=== PATIENT | female | born 1990 | race Two or more races ===

== ENCOUNTER 2020-09-02 09:30 | Outpatient (REF) | payer BC, SELFPAY ==
[2020-09-02 11:32] LABS: MANUAL DIFF FLAG NO
[2020-09-02 11:38] LABS: Basophils Percent Auto 0.3 % (0-2); Eosinophils Absolute Auto 0.1 X10*3/uL (0.0-0.4); Eosinophils Percent Auto 0.4 % (0-4); Hematocrit 38.4 % (37-47); Imm Gran Abs Auto 0.06 X10*3/uL (0.00-0.03); Imm Gran Pct Auto 0.5 % (0.0-0.4); Lymphocytes Absolute Auto 2.4 X10*3/uL (1.2-4.9); Lymphocytes Percent Auto 20.2 % (20-40); Mean Corpuscular HGB Conc 31.3 g/dl (31.0-35.0); Mean Corpuscular Hemoglobin 27.9 pg (27.0-33.0); Mean Corpuscular Volume 89.3 fL (80-98); Mean Platelet Volume 9.3 fL (9.4-12.3); Monocytes Absolute Auto 0.8 X10*3/uL (0.1-1.2); Monocytes Percent Auto 6.4 % (2-11); Neutrophils Absolute Auto 8.5 X10*3/uL (2.0-8.3); Neutrophils Percent Auto 72.2 % (45-73); Platelet Count 339 X10*3/uL (160-400); Red Cell Distribution Width 11.9 % (11.0-16.0); White Blood Count 11.8 X10*3/uL (4.8-10.8)
[2020-09-02 12:27] LABS: Thyroid Stimulating Hormone 1.77 uIU/mL (0.32-4.0)
[2020-09-02 12:39] LABS: Alanine Aminotransferase 12 U/L (0-31); Albumin Level 4.1 g/dL (3.5-5.0); Alkaline Phosphatase 101 U/L (39-117); Anion Gap 11 (12-20); Aspartate Amino Transferase 14 U/L (5-31); Bilirubin Total 0.9 mg/dL (0.0-1.0); Blood Urea Nitrogen 12 mg/dL (9-16); Calcium 9.4 mg/dL (8.4-10.2); Carbon Dioxide 29 mmol/L (22-29); Cholesterol 178 mg/dL; Estimated Glomerular Filt Rate > 60; Glucose Fasting 100 mg/dL (60-99); HDL Cholesterol 51 mg/dL; LDL Cholesterol Calculated 115 mg/dl; Potassium 3.7 mmol/L (3.3-5.1); Sodium 138 mmol/L (135-145); Total Protein 7.5 g/dL (6.5-8.0); Triglycerides 64 mg/dL
[2020-09-02 12:46] LABS: Chloride 102 mmol/L (96-108)
[2020-09-03 09:27] LABS: CT PCR NOT DETECTED (Not Detect.); NG PCR NOT DETECTED (Not Detect.)
[2020-09-03 18:51] LABS: Prolactin 21.3 ng/mL
[2020-09-03 22:52] LABS: DHEA Sulfate 544 mcg/dL (18-391)
[2020-09-07 11:12] LABS: Testosterone, Free 6.7 pg/mL (0.1-6.4); Testosterone, Total 26 ng/dL (2-45)
== END 2020-09-02 09:31 | disposition home or self-care (01) ==
LOC: HO.LAB 09:30
PROVIDERS: Absent Provider Internal Medicine; PCP Internal Medicine; Visit Provider Advanced Practice Midwife
DX: Z11.3 Encounter for screening for infections with a predominantly sexual mode of transmission (principal); N92.6 Irregular menstruation, unspecified; L68.0 Hirsutism; L70.9 Acne, unspecified; R23.4 Changes in skin texture; Z20.2 Contact with and (suspected) exposure to infections with a predominantly sexual mode of transmission
CPT/HCPCS: 36415; 80053; 80061; 81003; 81025; 82627; 83498; 84146; 84402; 84403; 84443; 85025; 87491; 87591

== ENCOUNTER 2020-09-21 11:03 | Outpatient (REF) | payer BC, SELFPAY ==
--- NOTE | ~2020-09-21 | US_ITS ---
EXAMINATION: PELVIC ULTRASOUND CLINICAL INFORMATION: HIRSUTISM COMPARISON: None TECHNIQUE: Transabdominal and transvaginal pelvic ultrasound was performed. Transvaginal exam was performed for better visualization of the uterus and ovaries. FINDINGS: The uterus is anteverted and measures 8.8 x 3.4 x 4.3 cm in dimension. No focal uterine lesion is seen. Endometrial thickness is normal measuring 0.9 cm. There are nabothian cysts in the cervix. The right ovary measures 3.7 x 2 x 2.1 cm. There is a small nonspecific hyperechoic area in the right ovary measuring 8 x 6 x 4 mm. The left ovary is normal-appearing and measures 3.5 x 1.9 x 2.9 cm. There is trace fluid in the pelvis. US/US pelvic and transvaginal IMPRESSION: Nonspecific small 8 x 6 x 4 mm hyperechoic area in the right ovary. Otherwise unremarkable exam.
== END 2020-09-21 11:04 | disposition home or self-care (01) ==
LOC: HO.US 11:03
PROVIDERS: Visit Provider Advanced Practice Midwife
DX: L68.0 Hirsutism (principal); L70.9 Acne, unspecified; N92.6 Irregular menstruation, unspecified
CPT/HCPCS: 76830; 76856

== ENCOUNTER → 2020-10-06 10:31 | Outpatient (BNVA) | payer BC, SELFPAY | PROVIDERS: PCP Internal Medicine; Visit Provider Advanced Practice Midwife ==

== ENCOUNTER 2020-11-08 08:58 | Outpatient (REF) | payer BC, SELFPAY | END 2020-11-08 08:59 | disposition home or self-care (01) | LOC: HO.LAB 08:58 | PROVIDERS: PCP Internal Medicine; Visit Provider Advanced Practice Midwife | DX: Z01.411 Encounter for gynecological examination (general) (routine) with abnormal findings (principal); L73.1 Pseudofolliculitis barbae; N92.6 Irregular menstruation, unspecified | CPT/HCPCS: 88142 ==

== ENCOUNTER → 2020-12-29 13:13 | Outpatient (BNVA) | payer BC, SELFPAY | PROVIDERS: PCP Internal Medicine; Visit Provider Internal Medicine ==

== ENCOUNTER 2020-12-30 08:25 | Outpatient (REF) | payer BC, SELFPAY ==
[2020-12-30 09:31] LABS: Alanine Aminotransferase 11 U/L (0-31); Albumin Level 4.4 g/dL (3.5-5.0); Alkaline Phosphatase 107 U/L (39-117); Anion Gap 15 (12-20); Aspartate Amino Transferase 22 U/L (5-31); Bilirubin Total 0.8 mg/dL (0.0-1.0); Blood Urea Nitrogen 10 mg/dL (9-16); Calcium 9.6 mg/dL (8.4-10.2); Carbon Dioxide 25 mmol/L (22-29); Chloride 104 mmol/L (96-108); Estimated Glomerular Filt Rate > 60; Glucose Random 98 mg/dL (60-115); Potassium 3.8 mmol/L (3.3-5.1); Sodium 140 mmol/L (135-145); Total Protein 7.7 g/dL (6.5-8.0)
[2020-12-30 09:52] LABS: Free T4 (Free Thyroxine) 1.02 ng/dL (0.71-1.85); HCG Quantitative < 2 mIU/mL; Thyroid Stimulating Hormone 1.82 uIU/mL (0.32-4.0); Vitamin D 25-OH Total 24.6 ng/mL (>30)
[2020-12-30 09:59] LABS: Glucose Fasting 98 mg/dL (60-99)
[2020-12-30 10:26] LABS: Estimated Average Glucose 97 mg/dL
[2020-12-30 10:55] LABS: Glucose 1 Hour 248 mg/dL
[2020-12-30 12:04] LABS: Glucose 2 Hour 136 mg/dL
[2021-01-01 01:56] LABS: DHEA Sulfate 624 mcg/dL (18-391); Sex Hormone Binding Globulin 13 nmol/L (17-124)
[2021-01-03 15:06] LABS: IGF-1 (Somatomedin C) 239 ng/mL (63-373); IGF-1 Z Score (Female) 0.9 SD (-2.0 - +2.0)
[2021-01-03 22:52] LABS: Adrenocorticotropic Hormone 36 pg/mL (6-50)
[2021-01-04 11:41] LABS: Testosterone, Free 7.9 pg/mL (0.1-6.4); Testosterone, Total 38 ng/dL (2-45)
[2021-01-05 00:51] LABS: Follicle Stimulating Hormone 6.5 mIU/mL; Lutenizing Hormone 13.3 mIU/mL; Prolactin 13.7 ng/mL
[2021-01-05 23:02] LABS: Androstenedione 196 ng/dL
[2021-01-06 21:22] LABS: Estradiol Free 1.18 pg/mL; Estradiol, Ultrasensitive 46 pg/mL
== END 2020-12-30 08:26 | disposition home or self-care (01) ==
LOC: HO.LAB 08:25
PROVIDERS: PCP Internal Medicine; Visit Provider Internal Medicine
DX: N92.6 Irregular menstruation, unspecified (principal); E55.9 Vitamin D deficiency, unspecified; E28.8 Other ovarian dysfunction
CPT/HCPCS: 36415; 80053; 82024; 82157; 82306; 82533; 82627; 82670; 82681; 83001; 83002; 83036; 83498; 84146; 84270; 84305; 84402; 84403; 84439; 84443; 84702

== ENCOUNTER 2021-02-08 07:58 | Outpatient (REF) | payer BC, SELFPAY ==
--- NOTE | ~2021-02-08 | CT_ITS ---
EXAMINATION: CT ABDOMEN WITHOUT AND WITH CONTRAST CLINICAL INFORMATION: Ovarian dysfunction. COMPARISON: Pelvic ultrasound of 09/21/2020 TECHNIQUE: Contiguous axial thin section helical images of the abdomen were performed before and after the administration of 85 mL of Omnipaque 350 intravenous contrast. The data set was reformatted in the coronal and sagittal planes and reviewed on an independent workstation. This CT examination was performed using dose optimization techniques as appropriate, variously including the following: *Automated exposure control *Adjustment of mA and/or kV according to patient size (this includes techniques or standardized protocols for targeted exams where dose is matched to indication/reason for exam; i.e. extremities or head) *Use of iterative reconstruction technique DLP: 438 mGy-cm FINDINGS: LUNG BASES: Unremarkable. No pleural or pericardial effusion. LIVER, GALLBLADDER, AND BILIARY TREE: The liver appears unremarkable without focal mass or intrahepatic bile ductal dictation. The gallbladder appears unremarkable without evidence of cholelithiasis or acute cholecystitis. No pericholecystic fluid is appreciated. PANCREAS: Unremarkable. No mass or peripancreatic inflammatory change. SPLEEN: Unremarkable. ADRENAL GLANDS AND KIDNEYS: Adrenal Glands: No adrenal gland mass is appreciated. Kidneys and Ureters: There is a 2 mm nonobstructing midpole calculus within the right kidney. No hydronephrosis or focal mass is appreciated. Right ureter visualized portions appear unremarkable. No left renal calculus identified. No hydronephrosis or focal left renal mass is seen. Visualized portions of the left ureter are unremarkable. BOWEL LOOPS: No free air or free fluid is appreciated. There is a gas-distended loop of colon within the mid left abdomen without wall thickening or adjacent inflammatory change. No pericolonic inflammatory change. LYMPH NODES: No lymphadenopathy appreciated. VASCULAR: Unremarkable. BONES: No destructive bony lesions identified. CT/CT abdomen wo/w con IMPRESSION: No adrenal gland lesion appreciated. 2 mm nonobstructing right renal calculus.
[2021-02-08] MEDS: iohexoL 350 MG/ML 100 ML INFUS..BTL IV (09:32)
== END 2021-02-08 07:59 | disposition home or self-care (01) ==
LOC: HO.CT 07:58
PROVIDERS: PCP Internal Medicine; Visit Provider Internal Medicine
DX: E28.8 Other ovarian dysfunction (principal)
CPT/HCPCS: 74170; Q9967

== ENCOUNTER → 2021-03-23 11:37 | Outpatient (BNVA) | payer BC, SELFPAY | PROVIDERS: PCP Internal Medicine; Visit Provider Internal Medicine ==

== ENCOUNTER 2021-03-24 07:02 | Outpatient (REF) | payer BC, SELFPAY ==
[2021-03-24 09:14] LABS: Thyroid Stimulating Hormone 0.58 uIU/mL (0.32-4.0)
[2021-03-24 09:36] LABS: Cortisol Random < 1.0 ug/dL
[2021-03-25 19:36] LABS: Adrenocorticotropic Hormone 7 pg/mL (6-50)
[2021-03-30 14:47] LABS: Dexamethasone 257 ng/dL
== END 2021-03-24 07:03 | disposition home or self-care (01) ==
LOC: HO.LAB 07:02
PROVIDERS: PCP Internal Medicine; Visit Provider Internal Medicine
DX: E28.8 Other ovarian dysfunction (principal); E66.3 Overweight
CPT/HCPCS: 36415; 80299; 82024; 82533; 84443

== ENCOUNTER → 2021-05-04 10:38 | Outpatient (BNVA) | payer OTHER, SELFPAY | PROVIDERS: PCP Internal Medicine; Visit Provider Internal Medicine ==

== ENCOUNTER → 2021-05-18 14:35 | Outpatient (BNVA) | payer OTHER, SELFPAY | PROVIDERS: PCP Internal Medicine; Visit Provider Advanced Practice Midwife ==

== ENCOUNTER 2021-05-19 09:40 | Outpatient (REF) | payer OTHER, SELFPAY ==
[2021-05-19 10:14] LABS: MANUAL DIFF FLAG NO
[2021-05-19 10:26] LABS: Basophils Percent Auto 0.4 % (0-2); Eosinophils Percent Auto 0.4 % (0-4); Hematocrit 41.1 % (37.0-47.0); Hemoglobin 12.5 g/dl (12.0-16.0); Imm Gran Abs Auto 0.03 X10*3/uL (0.00-0.03); Imm Gran Pct Auto 0.3 % (0.0-0.4); Lymphocytes Absolute Auto 1.9 X10*3/uL (1.2-4.9); Lymphocytes Percent Auto 19.9 % (20-40); Mean Corpuscular HGB Conc 30.4 g/dl (31.0-35.0); Mean Corpuscular Hemoglobin 27.1 pg (27.0-33.0); Mean Corpuscular Volume 89.2 fL (80.0-98.0); Mean Platelet Volume 9.5 fL (9.4-12.3); Monocytes Absolute Auto 0.7 X10*3/uL (0.1-1.2); Monocytes Percent Auto 7.3 % (2-11); Neutrophils Absolute Auto 6.8 x10*3/uL (2.0-8.3); Neutrophils Percent Auto 71.7 % (45-73); Platelet Count 412 X10*3/uL (160-400); Red Blood Count 4.61 X10*6/uL (4.20-5.50); Red Cell Distribution Width 12.3 % (11.0-16.0); White Blood Count 9.5 X10*3/uL (4.8-10.8)
[2021-05-19 10:54] LABS: Alanine Aminotransferase 13 U/L (0-31); Albumin Level 4.2 g/dL (3.5-5.0); Alkaline Phosphatase 115 U/L (39-117); Anion Gap 11 (12-20); Aspartate Amino Transferase 18 U/L (5-31); Bilirubin Total 0.7 mg/dL (0.0-1.0); Blood Urea Nitrogen 11 mg/dL (9-16); Carbon Dioxide 30 mmol/L (22-29); Chloride 100 mmol/L (96-108); Estimated Glomerular Filt Rate > 60; Glucose Random 126 mg/dL (60-115); Potassium 3.6 mmol/L (3.3-5.1); Sodium 137 mmol/L (135-145)
[2021-05-19 11:04] LABS: Erythrocyte Sedimentation Rate 17 MM/HR (0-20)
== END 2021-05-19 09:41 | disposition home or self-care (01) ==
LOC: HO.LAB 09:40
PROVIDERS: PCP Internal Medicine; Visit Provider Nurse Practitioner Acute Care
DX: R59.0 Localized enlarged lymph nodes (principal)
CPT/HCPCS: 36415; 80053; 85025; 85652

== ENCOUNTER → 2021-05-24 10:48 | Outpatient (BNVA) | payer OTHER, SELFPAY | PROVIDERS: PCP Internal Medicine; Visit Provider Dietitian, Registered | DX: E28.2 Polycystic ovarian syndrome (principal) | CPT/HCPCS: 97802 ==

== ENCOUNTER 2021-06-08 08:28 | Outpatient (REF) | payer OTHER, SELFPAY ==
--- NOTE | ~2021-06-08 | US_ITS ---
EXAMINATION: ULTRASOUND EXTREMITY NONVASCULAR CLINICAL INFORMATION: Enlarged lymph nodes left groin COMPARISON: None TECHNIQUE: Grayscale and color imaging of the soft tissues of the left groin FINDINGS: There are 2 normal-appearing left groin lymph nodes. These are normal in size and demonstrate normal ultrasound morphology and flow. US/US extremity nonvascular IMPRESSION: 2 normal-appearing left groin lymph nodes.
== END 2021-06-08 08:29 | disposition home or self-care (01) ==
LOC: HO.US 08:28
PROVIDERS: PCP Internal Medicine; Visit Provider Nurse Practitioner Acute Care
DX: R59.0 Localized enlarged lymph nodes (principal)
CPT/HCPCS: 76882

== ENCOUNTER → 2021-07-05 08:53 | Outpatient (BNVA) | payer OTHER, SELFPAY | PROVIDERS: PCP Internal Medicine; Visit Provider Dietitian, Registered | DX: E28.2 Polycystic ovarian syndrome (principal) | CPT/HCPCS: 97803 ==

== ENCOUNTER 2021-08-20 08:17 | Outpatient (REF) | payer OTHER, SELFPAY ==
[2021-08-20 09:27] LABS: Alanine Aminotransferase 26 U/L (0-31); Albumin Level 3.8 g/dL (3.5-5.0); Alkaline Phosphatase 75 U/L (39-117); Anion Gap 13 (12-20); Aspartate Amino Transferase 20 U/L (5-31); Bilirubin Total 0.8 mg/dL (0.0-1.0); Blood Urea Nitrogen 12 mg/dL (9-16); Calcium 9.7 mg/dL (8.4-10.2); Carbon Dioxide 25 mmol/L (22-29); Chloride 106 mmol/L (96-108); Cholesterol 147 mg/dL; Estimated Glomerular Filt Rate > 60; Glucose Fasting 104 mg/dL (60-99); HDL Cholesterol 48 mg/dL; LDL Cholesterol Calculated 84 mg/dl; Potassium 4.4 mmol/L (3.3-5.1); Sodium 140 mmol/L (135-145); Total Protein 7.2 g/dL (6.5-8.0); Triglycerides 77 mg/dL
== END 2021-08-20 08:18 | disposition home or self-care (01) ==
LOC: HO.LAB 08:17
PROVIDERS: PCP Internal Medicine; Visit Provider Internal Medicine
DX: Z00.00 Encounter for general adult medical examination without abnormal findings (principal)
CPT/HCPCS: 36415; 80053; 80061

== ENCOUNTER → 2021-09-07 11:35 | Outpatient (BNVA) | payer OTHER, SELFPAY | PROVIDERS: PCP Internal Medicine; Visit Provider Dietitian, Registered | DX: E28.2 Polycystic ovarian syndrome (principal) | CPT/HCPCS: 97803 ==

== ENCOUNTER 2021-09-21 15:42 | Emergency (ER) | payer OTHER, SELFPAY ==
[2021-09-21 16:24] VITALS: BP 108/65; PULSE 91; RESP 18; TEMP 36; O2SAT 98; BMI 24.7
[2021-09-21 18:08] VITALS: BP 116/66; PULSE 68; RESP 18; TEMP 36.7; O2SAT 99
--- NOTE | 2021-09-21 18:18 | ED.ALLEREA ---
HPI - Allergic Reaction General Chief complaint: Allergic Reaction Stated complaint: ?allergic reaction to med..hives and rash Time Seen by Provider: 09/21/21 18:01 Source: patient Mode of arrival: ambulatory Limitations: no limitations History of Present Illness HPI narrative: 31 yo female here with itching generalized rash x 4 days. Patient tells me 3 weeks ago she started taking terbinafine for a fungal toenail. She tells me that the rash developed 4 days ago. She has has not taken the medication in 48 hours. She is using Benadryl. She reports continued itching rash. No cough, difficulty breathing, vomiting, diarrhea, abdominal cramping. Related Data Home Medications Medication Instructions Recorded Confirmed cholecalciferol (vitamin D3) 50 50 mcg PO DAILY 08/29/21 08/29/21 mcg (2,000 unit) capsule (Vitamin D3) Previous Rx's Medication Instructions Recorded drospirenone 3 mg-ethinyl 1 tab PO DAILY #28 tab 05/18/21 estradiol 0.02 mg tablet (FADY (28)) terbinafine HCl 250 mg tablet 250 mg PO DAILY 90 Days #90 tab 08/17/21 hydroxyzine HCl 25 mg tablet 25 mg PO QID PRN #14 tab 09/21/21 prednisone 20 mg tablet 40 mg PO DAILY #10 tab 09/21/21 Allergies Allergy/AdvReac Type Severity Reaction Status Date / Time No Known Allergies Allergy Verified 08/17/21 07:43 Review of Systems Review of Systems: Yes all other systems are reviewed and are negative Constitutional: Constitutional: Reports no additional constitutional complaints, Denies body ache(s), Denies chills, Denies fever(s), Denies headache(s) and Denies weakness Eyes: Eyes: Reports no additional eye complaints and Denies change in vision ENT: Reports system reviewed and no additional complaints, except as documented, Denies dizziness, Denies headache(s), Denies nasal congestion, Denies nasal discharge and Denies neck pain Cardiovascular: Cardiovascular: Reports no additional cardiovascular complaints, Denies chest pain, Denies leg edema and Denies dyspnea Respiratory: Respiratory: Reports no additional respiratory complaints, Denies cough and Denies dyspnea Gastrointestinal: Gastrointestinal: Reports no additional gastrointestinal complaints, Denies abdominal pain, Denies diarrhea, Denies nausea and Denies vomiting Genitourinary: Genitourinary: Reports no additional female genitourinary complaints and Denies urinary incontinence Musculoskeletal: Musculoskeletal: Reports no additional musculoskeletal complaints, Denies back pain, Denies arthralgias, Denies joint swelling, Denies neck pain, Denies numbness and Denies tingling Integumentary/Breasts: Skin/Breast: Reports system reviewed and no additional complaints, except as docu and Reports rash Neurologic: Reports system reviewed and no additional complaints, except as documented, Denies dizziness, Denies headache(s), Denies numbness, Denies tingling and Denies weakness PMFSH Past Medical History Attestation statement: The following information was validated with the patient. Source: old records reviewed and nursing notes reviewed Medical History Hyperandrogenism Irregular periods Onychomycosis Ovarian cyst Overweight PCOS (polycystic ovarian syndrome) Physical exam Vitamin D deficiency Surgical History No pertinent past surgical history Family History Family History Father Hypertension Mother Hypertension Hypothyroidism Social History Social History Housing: Apartment Alcohol intake: current Alcohol intake frequency: holidays/special occasions only Alcohol type: wine Patient Tobacco Use Status: Never used Tobacco e-Cigarette/Vaping Use: Never Used Second Hand Smoke Exposure: No Advance Directives: No Advance Directives Information Provided: No service: No Current occupational status: employed Current occupational exposures/hazards: No Sexual orientation: Lesbian/Owens/Homosexual Gender identity: Female Cognitive needs: No Hearing needs: No Vision needs: No Physical Exam ED Vital Signs: Vital Signs - 24 hr 09/21/21 16:24 09/21/21 18:08 Temperature 96.8 F 98.1 F Pulse Rate 91 68 Respiratory Rate 18 18 Blood Pressure 108/65 116/66 Pulse Oximetry 98 99 BMI result Body Mass Index 24.7 Const General: cooperative, healthy appearing and comfortable Orientation/consciousness: patient oriented x3 Limitations: no limitations HENMT Head: Yes normal to inspection Ears: hearing grossly normal bilaterally Mouth: Normal oral and palatal mucosa present, lip normal and tongue normal Throat: Yes posterior oropharynx normal, Yes tonsils normal and Yes uvula midline Eyes General: appearance normal, both eyes and all related structures Neck Neck: Yes normal visual inspection Chest Chest palpation & inspection: normal inspection of the chest Resp Effort & Inspection: normal respiratory effort Auscultation: clear to auscultation bilaterally Cardio Rate: regular rate Rhythm: regular rhythm Peripheral pulses: Peripheral pulses 2+ throughout Skin Other: Fine urticarial rash noted to the trunk and upper extremities Neuro General: patient oriented x3 and moves all extremities Cognition (Neuro): normal cognition Gait exam (Neuro): Normal gait present Course Course Course Narrative: 31-year-old female here with a urticarial rash for the last 4 days. Patient recently started terbanifine for a fungal toenail 3 weeks ago. She has been taking Benadryl with continued symptoms. She has continued to take terbinafine but did not take it yesterday. Patient has a slight urticarial rash. No airway involvement. Vitals are stable. Lungs are clear. Reviewed worrisome signs and symptoms of when to return to the emergency department. Comfortable discharge home. MDM - Allergic Reaction Medical Records Attestation: I reviewed the patient's medical records. Lab Data Attestation: I reviewed the patient's lab results. Discharge Plan Discharge Clinical Impression: Allergic reaction Patient Disposition: Home, Self-Care Instructions: General Allergic Reaction (ED) Additional Instructions: do not take terbinafine continue benadryl follow-up with pcp Prescriptions: New prednisone 20 mg tablet 40 mg PO DAILY Qty: 10 0RF hydroxyzine HCl 25 mg tablet 25 mg PO QID PRN (Reason: itching) Qty: 14 0RF No Action cholecalciferol (vitamin D3) [Vitamin D3] 50 mcg (2,000 unit) capsule 50 mcg PO DAILY 0RF terbinafine HCl 250 mg tablet 250 mg PO DAILY 90 Days Qty: 90 0RF drospirenone-ethinyl estradiol [FADY (28)] 3-0.02 mg tablet 1 tab PO DAILY Qty: 28 4RF Referrals: Christine Gentile MD [Primary Care Provider] - 5 days Stand Alone Forms: Work/School Release Interventions: ED Discharge Assessment Last Done: 09/21/21 18:23 Discharge Date/Time: 09/21/21 18:25
== END 2021-09-21 18:25 | disposition home or self-care (01) ==
LOC: HO.ED 18:18
PROVIDERS: Emergency Provider Emergency Medicine; PCP Internal Medicine
DX: L50.0 Allergic urticaria (principal); B35.1 Tinea unguium
CPT/HCPCS: 99282; 99283

== ENCOUNTER 2021-11-10 09:33 | Outpatient (REF) | payer OTHER, SELFPAY ==
[2021-11-10 17:08] LABS: CT PCR NOT DETECTED (Not Detect.); NG PCR NOT DETECTED (Not Detect.)
== END 2021-11-10 09:34 | disposition home or self-care (01) ==
LOC: HO.LAB 09:33
PROVIDERS: Visit Provider Advanced Practice Midwife
DX: Z11.3 Encounter for screening for infections with a predominantly sexual mode of transmission (principal); Z20.2 Contact with and (suspected) exposure to infections with a predominantly sexual mode of transmission
CPT/HCPCS: 87491; 87591

== ENCOUNTER 2021-12-28 15:18 | Outpatient (REF) | payer BC, SELFPAY ==
--- NOTE | ~2021-12-28 | US_ITS ---
EXAMINATION: US PELVIS CLINICAL INFORMATION: Polycystic ovarian syndrome COMPARISON: Ultrasound pelvis and transvaginal 6. TECHNIQUE: Ultrasound of the pelvis is performed using both transabdominal and transvaginal transducers along with Doppler. Transvaginal imaging is performed due to inadequate visualization transabdominally. FINDINGS: Uterus: The uterus is anteverted and measures 8.5 cm in length and 9 mL in AP and 5.2 cm in transverse dimension. The double wall endometrial thickness is 1.2 cm. The uterus is smooth in contour and has normal myometrial echogenicity. No visible fibroid. There is trace free fluid seen in the cervical canal. Adnexa: Both ovaries are visualized. There is normal color flow to the adnexa. There is no ovarian torsion. There is no pelvic ascites or fluid collection. Right ovary measures 3.5 x 2.9 cm and volume 5 mL cm. There is anechoic cyst measuring 2.7 x 2.2 x 2.8 cm. There is a hyperechoic focus measuring 0.8 x 0.7 x 0.8 cm previously it measured 0.8 0.4 cm. Left ovary measures 3.5 x 1.7 x 2.4 cm and volume 7.3 mL. No focal lesion seen. Previously left ovary measures 2.5 x 1.9 2.9 cm and volume 10.1 mL. There is no free fluid seen in cul-de-sac. US/US pelvic and transvaginal IMPRESSION: New small cyst right ovary. Hyperechoic foci in the right ovary is stable. Small amount of fluid in the cervical canal.
== END 2021-12-28 15:19 | disposition home or self-care (01) ==
LOC: HO.US 15:18
PROVIDERS: Visit Provider Advanced Practice Midwife
DX: E28.2 Polycystic ovarian syndrome (principal)
CPT/HCPCS: 76830; 76856

== ENCOUNTER → 2022-03-08 11:24 | Outpatient (BNVA) | payer BC, SELFPAY | PROVIDERS: PCP Internal Medicine; Visit Provider Dietitian, Registered | DX: E28.2 Polycystic ovarian syndrome (principal); E66.3 Overweight; Z68.27 Body mass index [BMI] 27.0-27.9, adult | CPT/HCPCS: 97803 ==

== ENCOUNTER → 2022-08-30 14:52 | Outpatient (BNVA) | payer BC, SELFPAY | PROVIDERS: PCP Internal Medicine; Visit Provider Internal Medicine ==

== ENCOUNTER 2022-09-02 07:02 | Outpatient (REF) | payer BC, SELFPAY ==
[2022-09-02 09:36] LABS: Alanine Aminotransferase 15 U/L (0-31); Albumin Level 3.8 g/dL (3.5-5.0); Alkaline Phosphatase 90 U/L (39-117); Anion Gap 13 (12-20); Aspartate Amino Transferase 15 U/L (5-31); Bilirubin Total 0.9 mg/dL (0.0-1.0); Blood Urea Nitrogen 10 mg/dL (9-16); Calcium 9.6 mg/dL (8.4-10.2); Carbon Dioxide 28 mmol/L (22-29); Chloride 104 mmol/L (96-108); Estimated Glomerular Filt Rate > 60; Glucose Random 96 mg/dL (60-115); Potassium 4.1 mmol/L (3.3-5.1); Sodium 141 mmol/L (135-145); Total Protein 7.2 g/dL (6.5-8.0)
[2022-09-03 21:14] LABS: DHEA Sulfate 364 mcg/dL (14-349); Sex Hormone Binding Globulin 103 nmol/L (17-124)
[2022-09-09 10:38] LABS: Testosterone, Free 5.4 pg/mL (0.1-6.4); Testosterone, Total 59 ng/dL (2-45)
== END 2022-09-02 07:03 | disposition home or self-care (01) ==
LOC: HO.LAB 07:02
PROVIDERS: PCP Internal Medicine; Visit Provider Internal Medicine
DX: E28.2 Polycystic ovarian syndrome (principal)
CPT/HCPCS: 36415; 80053; 82627; 84270; 84402; 84403

== ENCOUNTER 2022-09-30 07:27 | Outpatient (REF) | payer BC, SELFPAY ==
[2022-09-30 09:02] LABS: Alanine Aminotransferase 12 U/L (0-31); Albumin Level 3.7 g/dL (3.5-5.0); Alkaline Phosphatase 86 U/L (39-117); Anion Gap 13 (12-20); Aspartate Amino Transferase 14 U/L (5-31); Bilirubin Total 0.7 mg/dL (0.0-1.0); Blood Urea Nitrogen 10 mg/dL (9-16); Calcium 9.5 mg/dL (8.4-10.2); Carbon Dioxide 26 mmol/L (22-29); Chloride 105 mmol/L (96-108); Cholesterol 183 mg/dL; Estimated Glomerular Filt Rate > 60; Glucose Fasting 109 mg/dL (60-99); HDL Cholesterol 56 mg/dL; LDL Cholesterol Calculated 99 mg/dl; Potassium 4.1 mmol/L (3.3-5.1); Sodium 140 mmol/L (135-145); Total Protein 7.1 g/dL (6.5-8.0); Triglycerides 142 mg/dL
== END 2022-09-30 07:28 | disposition home or self-care (01) ==
LOC: HO.LAB 07:27
PROVIDERS: PCP Internal Medicine; Visit Provider Internal Medicine
DX: Z00.00 Encounter for general adult medical examination without abnormal findings (principal)
CPT/HCPCS: 36415; 80053; 80061

== ENCOUNTER → 2022-10-06 07:25 | Outpatient (BNVA) | payer BC, SELFPAY | PROVIDERS: PCP Internal Medicine; Visit Provider Internal Medicine ==

== ENCOUNTER 2022-10-14 06:59 | Outpatient (REF) | payer BC, SELFPAY ==
[2022-10-14 08:07] LABS: Estimated Average Glucose 94 mg/dL; Hemoglobin A1c % 4.9 %
[2022-10-14 08:28] LABS: Alanine Aminotransferase 29 U/L (0-31); Albumin Level 3.7 g/dL (3.5-5.0); Alkaline Phosphatase 89 U/L (39-117); Anion Gap 12 (12-20); Aspartate Amino Transferase 20 U/L (5-31); Bilirubin Total 0.9 mg/dL (0.0-1.0); Blood Urea Nitrogen 13 mg/dL (9-16); Calcium 9.6 mg/dL (8.4-10.2); Carbon Dioxide 28 mmol/L (22-29); Chloride 103 mmol/L (96-108); Estimated Glomerular Filt Rate > 60; Glucose Random 102 mg/dL (60-115); Potassium 4.1 mmol/L (3.3-5.1); Sodium 139 mmol/L (135-145); Total Protein 7.3 g/dL (6.5-8.0)
[2022-10-14 08:56] LABS: Glucose 1 Hour 216 mg/dL
[2022-10-14 10:11] LABS: Glucose 2 Hour 128 mg/dL
[2022-10-14 12:47] LABS: Glucose Fasting 99 mg/dL (60-99)
== END 2022-10-14 07:00 | disposition home or self-care (01) ==
LOC: HO.LAB 06:59
PROVIDERS: PCP Internal Medicine; Visit Provider Internal Medicine
DX: E28.2 Polycystic ovarian syndrome (principal)
CPT/HCPCS: 36415; 80053; 83036

== ENCOUNTER 2022-11-02 13:46 | Emergency (ER) | payer BC, SELFPAY ==
--- NOTE | 2022-11-02 13:49 | ED_ITS ---
HPI - General Adult General Chief complaint: Skin/Abscess/Foreign Body Stated complaint: allergic reaction medication Time Seen by Provider: 11/02/22 17:38 Source: patient, RN notes reviewed and old records reviewed Mode of arrival: ambulatory History of Present Illness HPI narrative: 32-year-old female with past medical history of GERD, prediabetic, depression, hyperandrogenism, PCOS, presenting to ED complaining of pruritic rash/inter mittent hives due to suspected allergic reaction to spironolactone. Patient admits rash noted 5 days ago, ceased spironolactone 4 days ago. Has been taking Spironolactone x1 month, however admits to similar reaction to Terbanifine in the past which occurred 1 month after initiating that medication. Has been taking Benadryl with some relief. Denies throat scratching/throat closing sensation, SOB, CP, wheezing/cough, other new soaps/lotions or detergent. Did recently return from a cruise however denies water contamination, diarrhea or sick contacts Onset (ago): day(s) Related Data Home Medications Medication Instructions Recorded Confirmed prenat.vits,ángel,[id number] 1 tab PO BEDTIME 11/10/21 10/06/22 Previous Rx's Medication Instructions Recorded drospirenone 3 mg-ethinyl 1 tab PO DAILY 28 days #28 tabs 01/10/22 estradiol 0.02 mg tablet (Meagan (28)) omeprazole 20 mg capsule,delayed 20 mg PO DAILY #30 caps 10/06/22 release spironolactone 100 mg tablet 100 mg PO DAILY 30 days #30 tabs 10/06/22 hydroxyzine HCl 25 mg tablet 25 mg PO TID PRN itching #14 tabs 11/02/22 prednisone 20 mg tablet 40 mg PO DAILY 5 days #10 tabs 11/02/22 Allergies Allergy/AdvReac Type Severity Reaction Status Date / Time terbinafine Allergy Intermediate hives, Verified 10/06/22 11:54 Rash and Itch skin Review of Systems Review of Systems: Constitutional: No Fever, No Chills ENT/Mouth: No Ear Pain, No Nasal Congestion, No Sinus Pain, No Hoarseness, No sore throat, No Rhinorrhea, No Swallowing Difficulty Cardiovascular: No Chest Pain, No SOB Respiratory: No Cough, No Sputum, No Wheezing Gastrointestinal: No Nausea, No Vomiting, No Diarrhea, No Constipation, No Abdominal pain Genitourinary: No Dysuria, No Urinary Frequency, No Hematuria, No Urgency, No Flank Pain Musculoskeletal: No joint pain, No Myalgias, No Joint Swelling Skin: + Skin Lesions, No rash Neuro: No Weakness, No Numbness, No Paresthesias Yes all other systems are reviewed and are negative Constitutional: Constitutional: Reports as per [facility] Past Medical History Attestation statement: The following information was validated with the patient. Source: old records reviewed Medical History Hyperandrogenism Irregular periods Onychomycosis Ovarian cyst Overweight PCOS (polycystic ovarian syndrome) Physical exam Prediabetes Vitamin D deficiency Surgical History No pertinent past surgical history Family History Family History Father Hypertension Mother Hypertension Hypothyroidism Paternal Grandfather Colon cancer Social History Social History Housing: Apartment Alcohol intake: current Alcohol intake frequency: does not drink Alcohol type: wine Patient Tobacco Use Status: Never used Tobacco Smoked in Last 30 Days: No e-Cigarette/Vaping Use: Never Used Second Hand Smoke Exposure: No Use of substances other than those prescribed or required for medical reasons: Yes Substance Use Type: Marijuana Substance Use Frequency: Occasionally Advance Directives: No Advance Directives Information Provided: Yes service: No Current occupational status: employed Current occupational exposures/hazards: No Sexual orientation: Lesbian/Owens/Homosexual Gender identity: Female Cognitive needs: No Hearing needs: No Vision needs: No Physical Exam ED Vital Signs: Vital Signs - 24 hr 11/02/22 13:50 11/02/22 18:18 Temperature 98.2 F Pulse Rate 119 H 89 Respiratory Rate 20 16 Blood Pressure 144/84 H 117/68 Pulse Oximetry 99 99 Oxygen Delivery Method Room Air Room Air BMI result Body Mass Index 26.7 Const General: cooperative, healthy appearing and no acute distress Orientation/consciousness: patient oriented x3 Limitations: no limitations HENMT Head: Yes normal to inspection and Yes atraumatic Ears: hearing grossly normal bilaterally, external ears normal and mastoids no rmal General nose exam: Normal external nose present Face and sinus: Yes normal facial exam Mouth: Normal oral and palatal mucosa present Throat: Yes posterior oropharynx normal, Yes tonsils normal, Yes uvula midline, No peritonsillar mass, No uvula laterally displaced and No uvular edema Eyes General: appearance normal, both eyes and all related structures EOM: EOMs intact bilaterally Neck Neck: Yes normal visual inspection, Yes no meningeal signs and No anterior neck swelling Resp Effort & Inspection: normal respiratory effort, no respiratory distress, no stridor and not tachypneic Auscultation: clear to auscultation bilaterally, no crackles and no wheezes Cardio Rate: regular rate Heart sounds: S1 normal heart sound present and S2 normal heart sound present GI Inspection: Yes normal to inspection Palpation (GI): Soft to palpation, nontender, no guarding and not rigid General: Yes no CVA tenderness Back/Spine/Pelvis Back: no CVA tenderness Skin Other: + urticarial rash noted to bilateral upper extremities and chest. No mucous membrane or palm/sole involvement Wounds: no wounds Neuro General: patient oriented x3, tone normal and no meningeal signs Gait exam (Neuro): Normal gait present Extrem General: Yes normal to inspection Course Course Course Narrative: This is a rapid medical exam: Additional HPI, ROS, PE not included below will be deferred to primary provider. Patient is a 32-year-old female with history of PCOS, prediabetes, hyperandogenism presenting to the emergency department with complaint of pruritic rash. Patient states she just returned from a cruise to [facility]. States symptoms began on Sunday on day 2 of her cruise. Recently started spirinolactone around one month ago, discontinued this on Sunday as she suspected this was the cause of her rash. Had similar reaction to turbinafine previously. Has been taking benadryl. States the rash appears on different areas of her body, is currently primarily to her upper arms. Lungs CTA throughout, patient speaking easily in full sentences, no uvular edema, no angioedema. Medications Administered Discontinued Medications Generic Name Dose Route Start Last Admin Trade Name Freq PRN Reason Stop Dose Admin Hydroxyzine HCl 25 mg 11/02/22 18:02 11/02/22 18:15 Hydroxyzine Hcl 25 Mg Tablet PO 11/02/22 18:03 25 mg ONCE ONE Administration Prednisone 40 mg 11/02/22 18:02 11/02/22 18:15 Prednisone 20 Mg Tablet PO 11/02/22 18:03 40 mg ONCE ONE Administration Medical Decision Making Medical Decision Making MDM Narrative: 32-year-old female with past medical history of GERD, prediabetic, depression, hyperandrogenism, PCOS, presenting to ED complaining of pruritic rash/intermittent hives due to suspected allergic reaction to spironolactone. On exam vital signs stable, NAD, nontoxic appearing, physical exam as noted above. Concern for allergic reaction due to spironolactone. No evidence of anaphylaxis. Lower suspicion for viral/tick-borne illness or hepatitis. No evidence of SJS/TENS or cellulitis Plan: PO prednisone and hydroxyzine. Discontinuation of spironolactone Please refer to course for remaining clinical decision making, interpretation of labs/imaging results, and discussions with consultants and/or family members. Differential Diagnosis Differential Diagnoses: The differential diagnosis associated with the presentation includes As above Admission/Observation Consideration of admission/observation: Escalation of care including admission/observation considered Lab Data [facility] Lab Attestation statement: I reviewed the patient's lab results. Radiology Impression Discussion of test interpretation with radiology: I have reviewed the radiologist's reading. External Record Review External record reviewed: Inpatient record, Office record, Outpatient record, Prior outpatient labs, Prior outpatient radiology, Primary care record and Outside ED record Tests considered The following testing was considered but not selected: As above Discharge Plan Discharge Clinical Impression: Allergic reaction Patient Disposition: Home, Self-Care Instructions: General Allergic Reaction (ED) Additional Instructions: Prednisone as a steroid which will help with allergic reaction symptoms Hydroxyzine will also help with itching. Please also take Benadryl however this will make you drowsy Discontinue taking spironolactone to follow-up with her doctor Is symptoms persist or worsen you develop shortness of breath or throat closing sensation return to the ED Prescriptions: New hydroxyzine HCl 25 mg tablet 25 mg PO TID PRN (Reason: itching) Qty: 14 0RF prednisone 20 mg tablet 40 mg PO DAILY 5 Days Qty: 10 0RF No Action omeprazole 20 mg capsule,delayed release(DR/EC) 20 mg PO DAILY Qty: 30 0RF prenat.vits,ángel,[id number] Tablet 1 tab PO BEDTIME drospirenone-ethinyl estradiol [Meagan (28)] 3-0.02 mg tablet 1 tab PO DAILY 28 Days Qty: 28 9RF spironolactone 100 mg tablet 100 mg PO DAILY 30 Days Qty: 30 3RF Referrals: Aki Macias MD [Physician] - Christine Gentile MD [Primary Care Provider] - 2 days Stand Alone Forms: Work/School Release Interventions: ED Discharge Assessment Last Done: 11/02/22 18:41 Discharge Date/Time: 11/02/22 18:41
[2022-11-02 13:50] VITALS: BP 144/84; PULSE 119; RESP 20; TEMP 36.8; O2SAT 99; BMI 26.7
[2022-11-02] MEDS: predniSONE 20 MG TABLET 40 MG PO (18:15)
[2022-11-02] MEDS: hydrOXYzine HCL 25 MG TABLET PO (18:15)
[2022-11-02 18:18] VITALS: BP 117/68; PULSE 89; RESP 16; O2SAT 99
== END 2022-11-02 18:41 | disposition home or self-care (01) ==
PROVIDERS: Emergency Provider Emergency Medicine; PCP Internal Medicine
DX: L50.0 Allergic urticaria (principal)
CPT/HCPCS: 99283; 99284

== ENCOUNTER 2022-11-07 13:09 | Outpatient (AMB) | payer BC, SELFPAY ==
--- NOTE | 2022-11-07 13:14 | A.OFFVIS_ITS ---
Intake Vital Signs 11/07/22 13:15 Height 5 ft 3 in Weight 157 lb 6.561 oz BMI 27.9 BP 108/64 Blood Pressure Location Rt brachial Position Sitting Pulse 92 Pulse Source Pulse Oximeter Intake Visit Reasons: ED follow up Intake Note: New patient to Dr. Reese present today for ED follow up visit. Patient had an allergic reaction to Spironolactone and was seen at [facility] on November 02, 2022. Inspector Technician Required: No Accompanied by: Self / Same As Patient Allergies terbinafine Allergy (Intermediate, Verified 11/07/22 13:17) hives, Rash and Itch skin spironolactone Allergy (Unknown, Verified 11/07/22 13:17) Hives, rash HPI HPI Comments History of Present Illness Details 32 YO Female with no significant PMHx who is seen in F/U for hyperandrogenism. The patient last saw Dr. Garrett on 10/06/2022 She reports a long history of irregular menses as hirsutism of the chin, neck and upper lip. She does report cystic on the face and back. She denies any voice changes. She reports these changes have been present since puberty. Labs were checked by her [facility] which revealed elevated free testosterone as well as DHEA-S. US of the ovaries revealed an 8 mm hypoechoic area within the R ovary, but was otherwise WNL. She was subsequently referred to Endocrinology. We checked a full biochemical assessment which revealed an elevated DHEA-s level, low SHBG and elevated free testosterone. Total testosterone was WNL. 1 mg overnight DSST was WNL. She had a CT of the abdomen which revealed no adrenal masses. She was started on OCP and menses have normalized. Testosterone is now elevated (total) with high normal SHBG and normal free testosterone. DHEA-s is also elevated. Menarche was age 13. OCP use: Currently using Meagan Metformin use: Denies Weight gain: Has gained 20 lbs this past year. Hirsutism/hyperandrogenism: Does have elevated DHEAs levels as well as free testosterone. Trying to conceive/clomiphene: Denies every attempting conception. CT Abdomen: 02/08/2021 FINDINGS: LUNG BASES: Unremarkable. No pleural or pericardial effusion.? LIVER, GALLBLADDER, AND BILIARY TREE: The liver appears unremarkable without focal mass or intrahepatic bile ductal dictation. The gallbladder appears unremarkable without evidence of cholelithiasis or acute cholecystitis. No pericholecystic fluid is appreciated.? PANCREAS: Unremarkable. No mass or peripancreatic inflammatory change. SPLEEN: Unremarkable.? ADRENAL GLANDS AND KIDNEYS: Adrenal Glands: No adrenal gland mass is appreciated. Kidneys and Ureters: There is a 2 mm nonobstructing midpole calculus within the right kidney. No hydronephrosis or focal mass is appreciated. Right ureter visualized portions appear unremarkable. No left renal calculus identified. No hydronephrosis or focal left renal mass is seen. Visualized portions of the left ureter are unremarkable. BOWEL LOOPS: No free air or free fluid is appreciated. There is a gas-distended loop of colon within the mid left abdomen without wall thickening or adjacent inflammatory change. No pericolonic inflammatory change.? LYMPH NODES: No lymphadenopathy appreciated. VASCULAR: Unremarkable. BONES: No destructive bony lesions identified.? Ovarian U/S: 09/21/2020 FINDINGS: The uterus is anteverted and measures 8.8 x 3.4 x 4.3 cm in dimension. No focal uterine lesion is seen. Endometrial thickness is normal measuring 0.9 cm. There are nabothian cysts in the cervix. The right ovary measures 3.7 x 2 x 2.1 cm. There is a small nonspecific hyperechoic area in the right ovary measuring 8 x 6 x 4 mm. The left ovary is normal-appearing and measures 3.5 x 1.9 x 2.9 cm. There is trace fluid in the pelvis.? T2DM or acanthosis: Denies Lipids: WNL. BP: WNL. Labs: Laboratory Tests 09/02/22 09/30/22 07:15 07:34 Sodium 140 Potassium 4.1 Creatinine 0.67 Estimated GFR > 60 Fasting Glucose 109 H AST 14 ALT 12 Triglycerides 142 Cholesterol 183 LDL Cholesterol, C alc 99 HDL Cholesterol 56 Total Testosterone 59 H Fr Testosterone Di belgica 5.4 Sex Hormone Bind G lob 103 DHEA Sulfate 364 H PFSH Medical History Hyperandrogenism Irregular periods Onychomycosis Ovarian cyst Overweight PCOS (polycystic ovarian syndrome) Physical exam Prediabetes Vitamin D deficiency Surgical History No pertinent past surgical history Family History Father Hypertension Mother Hypertension Hypothyroidism Paternal Grandfather Colon cancer Social History Housing: Apartment Alcohol intake: current Alcohol intake frequency: does not drink Alcohol type: wine Patient Tobacco Use Status: Never used Tobacco e-Cigarette/Vaping Use: Never Used Second Hand Smoke Exposure: No Substance Use Type: Marijuana service: No Current occupational status: employed Current occupational exposures/hazards: No Sexual orientation: Lesbian/Owens/Homosexual Gender identity: Female Cognitive needs: No Hearing needs: No Vision needs: No Female Reproductive History Menstrual Age of Menarche: 13 Assessment & Plan Assessment & Plan (1) Hirsutism: Code(s): L68.0 - Hirsutism Plan: This is a 32-year-old female with a history of PCOS currently being treated with control pill. She attempted spironolactone but had allergic reaction. Plan is to have the patient hold his spironolactone. She feels at this point that the hair growth is manageable and will continue the control pill. She will follow up with primary care provider in privacy director and return to endocrinology as needed Quality Reporting (2019) Adult ([facility] ) Smoking risk assessment performed?: Yes Patient Tobacco Use Status: Never used Tobacco Coding Level of Care Code Est Pt Level 3 (31225) Diagnoses Hirsutism L68.0
[2022-11-07 13:15] VITALS: BP 108/64; PULSE 92; BMI 27.9
== END 2022-11-07 13:33 | disposition home or self-care (01) ==
PROVIDERS: PCP Internal Medicine; Visit Provider Internal Medicine Endocrinology, Diabetes & Metabolism
DX: L68.0 Hirsutism (principal)
CPT/HCPCS: 99213

== ENCOUNTER → 2022-11-07 13:09 | Outpatient (BNVA) | payer BC, SELFPAY | PROVIDERS: PCP Internal Medicine; Visit Provider Internal Medicine Endocrinology, Diabetes & Metabolism ==

== ENCOUNTER 2022-11-11 11:40 | Emergency (ER) | payer BC, SELFPAY ==
[2022-11-11 11:51] VITALS: BP 128/82; PULSE 100; RESP 16; TEMP 36.7; O2SAT 98; BMI 27.5
--- NOTE | 2022-11-11 11:52 | ED.ALLEREA ---
HPI - Allergic Reaction General Chief complaint: Allergic Reaction Stated complaint: allergic reaction hives itchy Time Seen by Provider: 11/11/22 12:02 Source: patient Mode of arrival: ambulatory Limitations: no limitations History of Present Illness HPI narrative: Patient is a 32-year-old female presenting to the emergency department with ongoing diffuse pruritic rash. Patient was seen in this emergency department on 11/02 and prescribed a 5 day course of prednisone as well as hydroxyzine. She states that her symptoms improved with the prednisone but returned as soon as the prednisone was completed. She has been using loratadine and Benadryl with little relief. She denies any chest pain or shortness of breath. Denies any swelling to her lips, tongue, throat. She states that she discontinued spironolactone on Sunday which she suspects was the trigger for her symptoms. complaint: other (rash) Onset (ago): day(s) Exposure: medication Symptoms: rash and itching Severity: moderate Treatment prior to arrival: benadryl and steroids Previous Allergic Reaction History: prior ED visit(s) Related Data Home Medications Medication Instructions Recorded Confirmed prenat.vits,ángel,[id number] 1 tab PO BEDTIME 11/10/21 10/06/22 Previous Rx's Medication Instructions Recorded drospirenone 3 mg-ethinyl 1 tab PO DAILY 28 days #28 tabs 01/10/22 estradiol 0.02 mg tablet (Meagan (28)) omeprazole 20 mg capsule,delayed 20 mg PO DAILY #30 caps 10/06/22 release hydroxyzine HCl 25 mg tablet 25 mg PO TID PRN itching #14 tabs 11/02/22 prednisone 20 mg tablet 40 mg PO DAILY 5 days #10 tabs 11/02/22 prednisone 20 mg tablet 20 mg PO DAILY #18 tabs 11/11/22 Allergies Allergy/AdvReac Type Severity Reaction Status Date / Time terbinafine Allergy Intermediate hives, Verified 11/07/22 13:17 Rash and Itch skin spironolactone Allergy Unknown Hives, rash Verified 11/07/22 13:17 Review of Systems Review of Systems: As per HPI. Yes all other systems are reviewed and are negative Constitutional: Constitutional: Reports as per HPI [facility] Past Medical History Medical History Hyperandrogenism Irregular periods Onychomycosis Ovarian cyst Overweight PCOS (polycystic ovarian syndrome) Physical exam Prediabetes Vitamin D deficiency Surgical History No pertinent past surgical history Family History Family History Father Hypertension Mother Hypertension Hypothyroidism Paternal Grandfather Colon cancer Social History Social History Housing: Apartment Alcohol intake: current Alcohol intake frequency: does not drink Alcohol type: wine Patient Tobacco Use Status: Never used Tobacco e-Cigarette/Vaping Use: Never Used Second Hand Smoke Exposure: No Substance Use Type: Marijuana Advance Directives: No Advance Directives Information Provided: Yes service: No Current occupational status: employed Current occupational exposures/hazards: No Sexual orientation: Lesbian/Owens/Homosexual Gender identity: Female Cognitive needs: No Hearing needs: No Vision needs: No Physical Exam ED Vital Signs: Vital Signs - 24 hr 11/11/22 11:51 Temperature 98.1 F Pulse Rate 100 Respiratory Rate 16 Blood Pressure 128/82 Pulse Oximetry 98 Oxygen Delivery Method Room Air BMI result Body Mass Index 27.5 Vital signs have been reviewed and appear to be correct. Blood pressure normal. Heart rate normal. Respiratory rate normal. Temperature normal. Oxygen saturation normal. Const General: cooperative, healthy appearing and no acute distress Orientation/consciousness: oriented to person, oriented to place, oriented to time and patient oriented x3 Limitations: no limitations [facility] Head: Yes normocephalic and Yes atraumatic Ears: external ears normal General nose exam: Normal external nose present Face and sinus: Yes face symmetric Mouth: Normal oral and palatal mucosa present, lip normal, tongue normal, oropharynx normal and moist mucous membranes Throat: Yes posterior oropharynx normal, Yes uvula midline and No uvular edema Eyes Pupils: Equal, round and reactive pupils present Neck Neck: Yes normal visual inspection and Yes supple Resp Effort & Inspection: normal respiratory effort and able to speak in complete sentences Auscultation: clear to auscultation bilaterally Cardio Rate: regular rate Rhythm: regular rhythm Heart sounds: S1 normal heart sound present and S2 normal heart sound present GI Palpation (GI): Soft to palpation and nontender Auscultation: normoactive bowel sounds General: Yes no CVA tenderness Back/Spine/Pelvis Back: no CVA tenderness Skin Other: generalized fine erythematous maculopapular rash to extremities and trunk General skin exam: elasticity normal and turgor normal Neuro General: oriented to person, oriented to place, oriented to time, patient oriented x3, moves all extremities, no focal motor deficits and CN's II-XI intact bilaterally Cranial nerves: Yes Equal, round and reactive pupils present Cognition (Neuro): normal cognition Extrem General: Yes full ROM, Yes no pedal edema and Yes no calf tenderness Psych Mental Status: mental status grossly normal Affect: normal affect Thought process: Normal thought process present Course Course Course Narrative: This is an RME: Additional HPI, ROS, PE not included below will be deferred to primary provider. Patient is a 32-year-old female who presents with reports of pruritic hives. States that she was seen here last week for similar reaction which was thought to be secondary to spironolactone that she was taking. She has subsequently stopped the medication, was taking the hydroxyzine and prednisone as prescribed from the emergency department. The day after stopping the prednisone, the hives re-presented and a become increasingly more itchy. Denies shortness of breath, difficulty breathing, airway compromise Medications Administered Discontinued Medications Generic Name Dose Route Start Last Admin Trade Name Hollandq PRN Reason Stop Dose Admin Hydroxyzine HCl 25 mg 11/11/22 11:54 11/11/22 12:06 Hydroxyzine Hcl 25 Mg Tablet PO 11/11/22 11:55 25 mg ONCE ONE Administration Prednisone 40 mg 11/11/22 11:54 11/11/22 12:06 Prednisone 20 Mg Tablet PO 11/11/22 11:55 40 mg ONCE ONE Administration Medical Decision Making Medical Decision Making MDM Narrative: Patient is a 32-year-old female presenting to the emergency department with ongoing diffuse pruritic rash. On exam patient is awake, A+Ox3, VS WNL, afebrile, normal neurological exam without focal deficits, no edema to lips, tongue, LS CTA throughout, generalized fine maculopapular rash to extremities and trunk. Given reported symptoms and physical exam findings, initial differential includes allergic reaction, contact dermatitis. No evidence of anaphylaxis. Unlikely tick-borne illness. No evidence of DRESS, SJS/TENS. Will prescribe extended tapered course of prednisone, advised patient to begin using cetirizine daily beginning with 10 mg daily. Advised patient she can increase the cetirizine up to total of 40 mg daily as needed for symptom relief. Discussed with patient that if rash persists beyond completion of 2nd course of prednisone, she should follow up with PCP, may need referral to dermatology. Return precautions discussed at bedside. Patient verbalized understanding of and agreement with plan. Differential Diagnosis Differential Diagnoses: The differential diagnosis associated with the presentation includes As per MDM. External Record Review External record reviewed: Inpatient record, Office record and Outpatient record Prescription Management I considered prescription management with: Other (Prednisone) Discharge Plan Discharge Clinical Impression: Rash and nonspecific skin eruption Patient Disposition: Home, Self-Care Instructions: Acute Rash (ED), General Allergic Reaction (ED) Additional Instructions: You were evaluated in the emergency department today for an allergic reaction. You have been given medications to control your symptoms. You can take cetirizine (Zyrtec) up to a maximum dose of 40mg daily as well as Pepcid, which are available denh-who-mgnaqhi, to help control your symptoms at home. You have also been given a prescription for steroids, please take them as directed. Please schedule an appointment with your primary care physician for follow-up. Return to the emergency department if you experience worsening rashes, difficulty breathing or swallowing, lip/mouth/tongue swelling, vomiting, or for any other concerning symptoms. Prescriptions: New prednisone 20 mg tablet 20 mg PO DAILY Qty: 18 0RF Rx Instructions: Take 3 tabs for total dose of 60mg for three days, then take 2 tabs for total dose of 40mg for three days, then take 1 tab for total dose of 20mg for 3 days No Action hydroxyzine HCl 25 mg tablet 25 mg PO TID PRN (Reason: itching) Qty: 14 0RF prednisone 20 mg tablet 40 mg PO DAILY 5 Days Qty: 10 0RF omeprazole 20 mg capsule,delayed release(DR/EC) 20 mg PO DAILY Qty: 30 0RF prenat.vits,ángel,ukd-qtzl-gwuvd Tablet 1 tab PO BEDTIME drospirenone-ethinyl estradiol [Meagan (28)] 3-0.02 mg tablet 1 tab PO DAILY 28 Days Qty: 28 9RF
[2022-11-11] MEDS: predniSONE 20 MG TABLET 40 MG PO (12:06)
[2022-11-11] MEDS: hydrOXYzine HCL 25 MG TABLET PO (12:06)
[2022-11-11 12:51] VITALS: BP 100/62; PULSE 89; RESP 16; TEMP 37.2; O2SAT 98
== END 2022-11-11 12:57 | disposition home or self-care (01) ==
PROVIDERS: Emergency Provider Emergency Medicine; PCP Internal Medicine
DX: L29.9 Pruritus, unspecified (principal)
CPT/HCPCS: 99282

== ENCOUNTER 2022-12-01 11:17 | Outpatient (AMB) | payer BC, SELFPAY ==
[2022-12-01 11:23] VITALS: BP 110/68; PULSE 84; O2SAT 99; BMI 28.2
--- NOTE | 2022-12-01 11:23 | MHC.PC.OV ---
Vital Signs 12/01/22 11:23 Height 5 ft 3 in Weight 159 lb 6 oz BMI 28.2 BP 110/68 Blood Pressure Location Lt brachial Position Sitting Pulse 84 Pulse Source Pulse Oximeter Pulse Oximetry (%) 99 Oxygen Delivery Method Room Air Intake Visit Reasons: Follow up for allergic reaction Intake Note: Pt is here for allergic reaction F/U. Pt is requesting a referral to an Mail Machine Operator due to continuous itchiness. Advertising Sales Associate Required: No Accompanied by: Self / Same As Patient Allergies terbinafine Allergy (Intermediate, Verified 12/01/22 11:24) hives, Rash and Itch skin spironolactone Allergy (Unknown, Verified 12/01/22 11:24) Hives, rash Tobacco use date assessed: 08/24/22 Dental Screening Dental Screen Date: 12/01/22 Did you have a dental visit in the last 12 months?: No Did you have a dental problem in the last 6 months where you did not have access to dental care?: No Was dental information given to patient?: Yes HPI HPI Comments History of Present Illness Details [age] year female past medical history significant for GERD, depression, PC was and vitamin-D deficiency. Patient of Dr. Yoder presents today for ER follow up for allergic reaction. Patient was seen at [facility] on 11/02/2022 rash on months after initiating spironolactone therapy. Patient was treated with prednisone, however when prednisone was discontinued the rash recurred so she re-presented to the emergency a maculo papular rash to extremities and trunk, no evidence of anaphylactic as possible allergic reaction versus contact dermatitis. Patient was prescribed a prednisone taper and was advise can take up to 40 mg of surgery seen daily as needed for symptom relief. Patient was advised to follow-up with PCP if rash reoccurs following 2nd course of prednisone for possible dermatology referral. Patient reports did not take her zyrtec yesterday or today, and is really itchy right arm, chest and face.Patient denies any difficulty breathing, swelling in the mouth/tongue. No signs of anyphylaxis.Patient advised to continue on daily Zyrtec 10 mg as when she is taking it completely resolves her symptoms, child and family counselor referral entered. Patient also states has hypopigmented rash to face that she noticed last week and is requesting referral to Dermatology. Patient denies any new soaps, lotions, detergents and is on ankle to correlate reaction with any food. Less likely related to spironolactone patient has been of this medication approximately 1 month and reactions continue to reoccur when stopping Zyrtec. [facility] Medical History Hyperandrogenism Irregular periods Onychomycosis Ovarian cyst Overweight PCOS (polycystic ovarian syndrome) Physical exam Prediabetes Vitamin D deficiency Surgical History No pertinent past surgical history Family History Father Hypertension Mother Hypertension Hypothyroidism Paternal Grandfather Colon cancer Social History Housing: Apartment Alcohol intake: current Alcohol intake frequency: does not drink Alcohol type: wine Patient Tobacco Use Status: Never used Tobacco e-Cigarette/Vaping Use: Never Used Second Hand Smoke Exposure: No Substance Use Type: Marijuana service: No Current occupational status: employed Current occupational exposures/hazards: No Sexual orientation: Lesbian/Owens/Homosexual Gender identity: Female Cognitive needs: No Hearing needs: No Vision needs: No Female Reproductive History Menstrual Age of Menarche: 13 Questionnaire Thrive Questionnaire Date Thrive assessed: 08/24/22 STELLA-7 AMB Questionnaire STELLA-7 Date STELLA - 7 assessed: 08/24/22 Source: Developed by Drs. Idris Burton, Erika Wilkes, Chan Ellison and colleagues, with an educational griselda from [employer]. Review of Systems Const Denies chills, Denies fatigue, Denies fever(s) and Denies poor appetite Eyes Denies no additional complaints ENT Reports Normal hearing present Card Denies chest pain, Denies syncope, Denies rapid heart rate and Denies dyspnea Resp Denies cough and Denies dyspnea GI Denies change in stool character, Denies constipation, Denies diarrhea, Denies nausea and Denies vomiting Denies urinary frequency, Denies dysuria and Denies urinary urgency Skin/Breast Details: erythema/itching left upper arm,chest and lip Reports pruritus Neuro Reports Normal hearing present, Denies confusion and Denies syncope Psych Denies confusion Endo Denies fatigue Physical exam (Primary Care) Vital Signs: Last Vital Signs Pulse 84 08/11/23 11:23 BP 110/68 12/01/22 11:23 Pulse Ox 99 12/01/22 11:23 Oxygen Delivery Method Room Air 12/01/22 11:23 BMI result Body Mass Index 28.2 Tobacco/Smoking Status: Tobacco use Status Tobacco use date assessed 08/24/22 12/01/22 11:30 Patient Tobacco Use Status Never used Tobacco 12/01/22 11:30 e-Cigarette/Vaping Use Never Used 12/01/22 11:30 Thrive Assessment: Date of Thrive Assessment Date Thrive assessed 08/24/22 12/01/22 11:30 Const General: No confusion Orientation/consciousness: No confusion HENMT Head: Yes normocephalic and Yes atraumatic Eyes Conjunctivae: conjunctivae normal Chest Chest palpation & inspection: normal inspection of the chest Resp Effort & Inspection: normal respiratory effort Auscultation: clear to auscultation bilaterally, no crackles, no rhonchi and no wheezes Cardio Rate: regular rate Rhythm: regular rhythm Heart sounds: S1 normal heart sound present and S2 normal heart sound present GI Inspection: Yes normal to inspection Skin Other: Hypopigmented annular skin rash noted around mouth and jaw line. Patient also has puritic erythema noted to chest, left arm. No hives noted Neuro General: No confusion Cranial nerves: Yes Normal hearing present Extrem General: No edema Assessment and Plan Assessment & Plan (1) Rash: Code(s): R21 - Rash and other nonspecific skin eruption Plan: Hypopigmented rash noted to pace around mouth and bilateral lower cheeks and jaw line, referral entered to dermatology as requested by patient. (2) Itching: Code(s): L29.9 - Pruritus, unspecified Plan: Patient advised to continue on 10 mg of Zyrtec daily as this resolves her erythema and itchiness. Referral placed to child and family counselor. Plan Keep scheduled physical with pcp or follow up sooner if needed. Coding Level of Care Code Est Pt Level 3 (76626) Diagnoses Rash R21 Itching L29.9
== END 2022-12-01 11:44 | disposition home or self-care (01) ==
PROVIDERS: PCP Internal Medicine; Visit Provider Nurse Practitioner Family
DX: R21 Rash and other nonspecific skin eruption (principal); L29.9 Pruritus, unspecified
CPT/HCPCS: 99213

== ENCOUNTER 2023-01-05 09:54 | Outpatient (REF) | payer BC, SELFPAY ==
[2023-01-06 05:47] LABS: CT PCR NOT DETECTED (Not Detect.); NG PCR NOT DETECTED (Not Detect.)
[2023-01-10 07:28] LABS: HPV mRNA E6/E7 rflx Not Detected (Not Detected)
== END 2023-01-05 09:55 | disposition home or self-care (01) ==
LOC: HO.LNP 09:54
PROVIDERS: PCP Internal Medicine; Visit Provider Advanced Practice Midwife
DX: Z01.419 Encounter for gynecological examination (general) (routine) without abnormal findings (principal); Z11.51 Encounter for screening for human papillomavirus (HPV); Z20.2 Contact with and (suspected) exposure to infections with a predominantly sexual mode of transmission
CPT/HCPCS: 0353U; 87624; 88142

== ENCOUNTER 2023-01-05 09:54 | Outpatient (AMB) | payer BC, SELFPAY ==
[2023-01-05 10:02] VITALS: BP 124/70; BMI 27.7
--- NOTE | 2023-01-05 10:02 | MHC.OFFVIS ---
Intake Vital Signs 01/05/23 10:02 Height 5 ft 3 in Weight 156 lb 8.451 oz BMI 27.7 BP 124/70 Intake Visit Reasons: [employer] annual exam Intake Note: no concerns The patient agreed to use of a medical records supervisor during this encounter. Scribed for MORENA Grimaldo by Magalys Queen medical records supervisor, on 01/05/2023 at 10:15 am EST Supervisor Stave Finishing Required: No Information Interpreted: non-clinical & clinical Abalone Processor: Abalone Processor Present (Celia Metcalf MARY) Accompanied by: Self / Same As Patient Allergies terbinafine Allergy (Intermediate, Verified 01/05/23 10:11) hives, Rash and Itch skin spironolactone Allergy (Unknown, Verified 01/05/23 10:11) Hives, rash Is last menstrual period known: Yes Last menstrual period: 12/06/22 HPI HPI Comments History of Present Illness Details She is a premenopausal woman presenting for annual exam. She attempts to eat healthy and stays active with exercise. Currently sexually active with female only partner. Uses OCP for cycle control. She recently started lamotrigine for mood disorder. Her provider is aware. She is concerned about her cycles getting heavier. Regular monthly periods. Denies vaginal itching and irritation. STD screening offered; she declines. Patient denies any contraindications to control such as tobacco use, migraines with aura, high blood pressure, liver disease, blood clotting disorders, DVT and PE. FOR[facility]LY [facility], [facility] Medical History Prediabetes Onychomycosis Physical exam Ovarian cyst Hyperandrogenism Vitamin D deficiency PCOS (polycystic ovarian syndrome) Irregular periods Overweight Surgical History No pertinent past surgical history Family History Father Hypertension Mother Hypertension Hypothyroidism Paternal Grandfather Colon cancer Social History Housing: Apartment Alcohol intake: current Alcohol intake frequency: does not drink Alcohol type: wine Patient Tobacco Use Status: Never used Tobacco e-Cigarette/Vaping Use: Never Used Second Hand Smoke Exposure: No Substance Use Type: Marijuana service: No Current occupational status: employed 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 Current occupational exposures/hazards: No Sexual orientation: Lesbian/Owens/Homosexual Gender identity: Female Cognitive needs: No Hearing needs: No Vision needs: No Female Reproductive History Menstrual Age of Menarche: 13 Date of last menstrual period: 12/06/22 Review of Systems Const All systems reviewed & are unremarkable except as noted in HPI and below Physical Exam Vital Signs: Last Vital Signs BP 124/70 01/05/23 10:02 BMI result Body Mass Index 27.7 Const General: cooperative, healthy appearing, no acute distress, well developed and alert Orientation/consciousness: patient oriented x3 HEENT Head: Yes normal to inspection Eyes General: appearance normal, both eyes and all related structures Neck Neck: Yes normal visual inspection Thyroid: Thyroid normal Chest Chest palpation & inspection: normal inspection of the chest Breast/axilla inspection: normal inspection of the breasts (no puckering, dimpling, peau de orange, retraction, discharge, masses) Breast/axilla palpation: normal palpation of the breasts Resp Effort & Inspection: normal respiratory effort GI Inspection: Yes normal to inspection Palpation (GI): Soft to palpation Rectal Exam - Female: deferred General: Yes bladder normal to palpation External Female Exam: normal external appearance and normal appearance of the urethra Speculum Exam - Vagina: normal appearance of the vagina, normal palpation and normal vaginal discharge Speculum Exam - Cervix: normal appearance of the cervix, normal palpation and Other cervical findings present (bled slightly with pap) Bimanual exam- vagina & uterus: normal bimanual exam, normal palpation, uterine size normal, bladder normal to palpation and normal palpation Bimanual Exam- Adnexa, other: normal adnexae and no masses Skin General skin exam: no rashes or lesions noted Neuro General: patient oriented x3 Cognition (Neuro): normal cognition Extrem General: Yes normal to inspection Psych Attitude: cooperative Thought process: Normal thought process present Assessment & Plan Assessment & Plan (1) Encounter for annual routine gynecological examination: Code(s): Z01.419 - Encounter for gynecological examination (general) (routine) without abnormal findings Plan: Discussed: Current recommendations for pap smears per ASCCP guidelines. Breast awareness and periodic self breast exams. Maintaining a healthy lifestyle including a well balanced diet and routine exercise. Encouraged condom use for STD and prevention if she becomes intimate with a male partner. All of her questions and concerns were addressed to the best of my ability. RTO in one year for AG. (2) Surveillance of contraceptive pill: Code(s): Z30.41 - Encounter for surveillance of contraceptive pills Plan: Counseled on efficacy of OCP with lamotrigine. Contact office with any concerns. Reviewed use, side effects and warning of OCP, including ACHES. She was instructed to go to ER if she develops loss of vision, severe headache that does not resolve, chest pain, difficulty breathing, abdominal pain, or severe pain or tenderness in extremity. She will call the office with any concerns. Orders: Orders Pap Smear Today Z01.419 - Encounter for gynecological examination (general) (routine) without abnormal findings CT NG by PCR Today Z01.419 - Encounter for gynecological examination (general) (routine) without abnormal findings Medications: Refilled drospirenone-ethinyl estradiol 3-0.02 mg (Meagan (28)) 1 tab PO DAILY 84 tabs 4RF 28 days Quality Reporting (2019) Adult ([facility] 138/06/14/68) Smoking risk assessment performed?: Yes Patient Tobacco Use Status: Never used Tobacco Coding Level of Care Code Est Pt Prev Care 18-39y(36937) Diagnoses Encounter for annual routine gynecological examination Z01.419 Surveillance of contraceptive pill Z30.41
== END 2023-01-05 10:39 | disposition home or self-care (01) ==
PROVIDERS: PCP Internal Medicine; Visit Provider Advanced Practice Midwife
DX: Z01.419 Encounter for gynecological examination (general) (routine) without abnormal findings (principal); Z30.41 Encounter for surveillance of contraceptive pills
CPT/HCPCS: 99395